=== PATIENT | male | born 1955 | race Caucasian/White ===

== ENCOUNTER 2021-04-06 19:22 | Emergency (ER) | payer BC ==
[~2021-04-06] VITALS: Ht 195.6 cm; Wt 167.8 kg
--- NOTE | 2021-04-06 19:30 | NUR ---
PT BIBRA C/O SYNCOPAL EPISODE WHILE SITTING ON A CHAIR. PT AAOX4 BREATHING EVENLY AND UNLABORED. PER PT, PT HAD BEEN FEELING SICK X3 DAYS. PT TESTED POSITIVE FOR COVID TODAY. UPON ASSESSMENT, PT HAS LAC ON BRIDGE OF NOSE. MD AT BEDSIDE. PT ATTACHED TO MONITOR AND POX. PT GIVEN BLANKET AND CALL LIGHT WITHIN REACH
--- NOTE | 2021-04-06 19:31 | NUR ---
[employer] LAC #18G S/L; PATENT AND INTACT
--- NOTE | 2021-04-06 19:44 | NUR ---
BS 98
--- NOTE | 2021-04-06 19:53 | NUR ---
BIG DATA LEAD AT PT'S BEDSIDE
[2021-04-06] MEDS ORDERED: IV NS 0.9% 1,000 ML BAG IV ONE (20:00)
[2021-04-06] MEDS ORDERED: POLYETHYLENE GLYCOL 3350 17 GM POWD.PACK PO ONE (20:00)
--- NOTE | 2021-04-06 20:02 | NUR ---
PT BEING TAKEN TO CT
--- NOTE | 2021-04-06 20:12 | NUR ---
PT RETURNED FROM CT
--- NOTE | 2021-04-06 20:30 | NUR ---
, Rosa [phone]
[2021-04-06 20:49] LABS: BASOPHILS % (AUTO) 0.6 % (0.0-2.0); HEMATOCRIT 45 % (39-51); HEMOGLOBIN 15.3 g/dL (13.5-17.5); LYMPHOCYTES # (AUTO) 0.8 K/uL (0.8-4.8); LYMPHOCYTES % (AUTO) 11.5 % (20.0-44.0); MEAN CORPUSCULAR HGB CONC 34 g/dl (31.0-36.0); MEAN CORPUSCULAR VOLUME 91 fL (80-96); MONOCYTES # (AUTO) 0.9 K/uL (0.1-1.30); MONOCYTES % (AUTO) 13.4 % (2.0-12.0); NEUTROPHILS # (AUTO) 5.1 K/uL (1.8-8.9); NEUTROPHILS % (AUTO) 74.5 % (43.0-81.0); PLATELET COUNT (AUTO) 179 K/uL (150-450); RED BLOOD CELL COUNT(AUTO) 4.99 MIL/uL (4.5-6.0); WHITE BLOOD COUNT (AUTO) 6.8 K/uL (4.3-11.0)
[2021-04-06] MEDS ORDERED: HYDROCODONE/APAP 5/325MG TABLET PO ONE (21:00)
[2021-04-06] MEDS ORDERED: DOXYCYCLINE HYCLATE (100 MG) 100 MG TABLET PO ONE (21:00)
[2021-04-06] MEDS ORDERED: HYDROCODONE/APAP 5/325MG TABLET ONE (21:03)
[2021-04-06] MEDS ORDERED: DOXYCYCLINE HYCLATE (100 MG) 100 MG TABLET ONE (21:04)
[2021-04-06] MEDS ORDERED: IBUP-1957 PO (21:06)
[2021-04-06] MEDS ORDERED: DOXY-326 PO (21:06)
[2021-04-06] MEDS ORDERED: HYDR-3972 PO (21:06)
[2021-04-06 21:20] LABS: ALANINE AMINOTRANSFERASE 28 U/L (12-78); ALBUMIN 4.2 g/dL (3.4-5.0); ALKALINE PHOSPHATASE 129 U/L (46-116); ASPARTATE AMINOTRANSFERASE 19 U/L (15-37); BILIRUBIN,DIRECT 0.1 mg/dL (0.0-0.2); BILIRUBIN,TOTAL 0.5 mg/dL (0.2-1.0); CALCIUM, SERUM 8.6 mg/dL (8.5-10.1); CARBON DIOXIDE 23 mmol/L (21-32); CHLORIDE 98 mmol/L (98-107); CREATININE 1.6 mg/dL (0.6-1.3); GLUCOSE 103 mg/dL (74-106); POTASSIUM 3.8 mmol/L (3.5-5.1); SODIUM SERUM 134 mmol/L (136-145); TOTAL PROTEIN, SERUM 9.9 g/dL (6.4-8.2); UREA NITROGEN, BLOOD 17 mg/dL (7-18)
--- NOTE | 2021-04-06 21:52 | NUR ---
Patient discharged to home in stable condition. Written and verbal after care instructions given. Patient verbalizes understanding of instruction.IV line discontinued and gentle pressure applied to site with gauze without incideent. All v/s stable at time of discharge and patient ambulated without difficulty.
[2021-04-06 21:53] VITALS: BP 149/77
== END 2021-04-06 21:53 | disposition home or self-care (01) ==
LOC: ER 19:25
DX: S09.90XA Unspecified injury of head, initial encounter (principal); S02.2XXA Fracture of nasal bones, initial encounter for closed fracture; U07.1 COVID-19; R55 Syncope and collapse; W19.XXXA Unspecified fall, initial encounter; Y93.89 Activity, other specified; Y92.89 Other specified places as the place of occurrence of the external cause; Y99.8 Other external cause status
CPT/HCPCS: 36415; 70450; 70486; 71045; 80048; 80076; 82962; 84484; 85025; 93005; 96360; 99285; A6403; J7030